=== PATIENT | female | born 1980 | race African-American/Black ===

== ENCOUNTER 2019-12-31 18:01 | Emergency (ER) | payer OTHER ==
[~2019-12-31] VITALS: Ht 162.6 cm; Wt 91.4 kg
[2019-12-31 18:02] VITALS: BP 130/79
[2019-12-31] MEDS ORDERED: BACT400T PO (18:28)
[2019-12-31] MEDS ORDERED: DOK1CAP7 PO (18:30)
[2019-12-31] MEDS ORDERED: BENZOCAINE 10% 9GM TUBE (ANBESOL) TOP STA (18:35)
[2019-12-31] MEDS ORDERED: MAGIC MOUTHWASH SUSPENSION BTL SS STA (18:35)
[2019-12-31] MEDS ORDERED: IBUPROFEN 600MG TAB PO ONE (18:45)
[2019-12-31] MEDS ORDERED: ACETAMINOPHEN 325 MG TAB PO ONE (18:45)
[2019-12-31] MEDS ORDERED: ANBE20GE TOP (18:47)
[2019-12-31] MEDS ORDERED: MAGICMW SSP (18:47)
[2019-12-31] MEDS ORDERED: ACET1TAB55 PO (18:47)
[2019-12-31] MEDS ORDERED: IBUP80TA PO (18:47)
== END 2019-12-31 19:12 | disposition home or self-care (01) ==
LOC: M ED 18:01
DX: K08.89 Other specified disorders of teeth and supporting structures (principal); K02.9 Dental caries, unspecified

== ENCOUNTER 2020-01-02 01:14 | Emergency (ER) | payer OTHER ==
[~2020-01-02] VITALS: Ht 162.6 cm; Wt 92.7 kg
[~2020-01-02 01:14] MED LIST: ACET1TAB55 PO; ANBE20GE TOP; BACT400T PO; DOK1CAP7 PO; IBUP80TA PO; MAGICMW SSP
[2020-01-02] MEDS ORDERED: IBUPROFEN 800 MG TAB PO ONE (03:00)
[2020-01-02] MEDS ORDERED: ACETAMINOPHEN 325 MG TAB PO ONE (03:00)
[2020-01-02 03:33] VITALS: BP 130/83
== END 2020-01-02 03:48 | disposition home or self-care (01) ==
LOC: M ED 01:14
DX: K02.9 Dental caries, unspecified (principal)

== ENCOUNTER 2020-02-21 13:05 | Emergency (ER) | payer OTHER ==
[2020-05-15 04:23] LABS: HCG, SERUM QUALITATIVE NEGATIVE (NEGATIVE)
== END 2020-02-21 16:42 | disposition home or self-care (01) ==
LOC: M ED 13:05
DX: M25.532 Pain in left wrist (principal); M25.542 Pain in joints of left hand; Y04.8XXA Assault by other bodily force, initial encounter; Y92.098 Other place in other non-institutional residence as the place of occurrence of the external cause

== ENCOUNTER 2020-04-08 22:35 | Emergency (ER) | payer OTHER ==
[~2020-04-08] VITALS: Ht 162.6 cm; Wt 87.5 kg
[2020-04-08 22:40] VITALS: BP 144/96
[2020-04-08] MEDS ORDERED: FLON1SPR NARES (22:49)
[2020-04-08] MEDS ORDERED: AZEL1SPR3 NARES (22:49)
[2020-04-08] MEDS ORDERED: CLAR10CA3 PO (22:49)
--- NOTE | 2020-04-09 01:25 | REPVR ---
PROCEDURE INFORMATION: Exam: XR Right Hand Exam date and time: 04/09/2020 1:11 AM Age: 39 years old Clinical indication: Pain; Hand; Bilateral; Additional info: [facility]uma first [facility] TECHNIQUE: Imaging protocol: XR Right hand. Views: 3 or more views. COMPARISON: CR Hand, complete LEFT 02/21/2020 2:38 PM FINDINGS: Bones/joints: Bony structures are aligned normally. Degree of osseous mineralization is age-appropriate. No acute fracture. No concerning osseous lesion. Joint spaces of the hand are well-maintained. Soft tissues: No focal soft tissue swelling. No evidence of soft tissue laceration or opaque foreign body. IMPRESSION: Normal radiographic series of the right hand. PROCEDURE INFORMATION: Exam: XR Left Hand Exam date and time: 04/09/2020 1:11 AM Age: 39 years old Clinical indication: Pain; Hand; Bilateral; Additional info: Trauma first [facility] TECHNIQUE: Imaging protocol: XR Left hand. Views: 3 or more views. COMPARISON: CR Hand, complete LEFT 02/21/2020 2:38 PM FINDINGS: Bones/joints: Bony structures are aligned normally. Degree of osseous mineralization is age-appropriate. No acute fracture. Small well-defined os effect fragment at the radial aspect of the distal thumb metacarpal similar to the prior exam, suggesting a prior injury No concerning osseous lesion. Joint spaces of the hand are well-maintained. Soft tissues: No focal soft tissue swelling. No evidence of soft tissue laceration or opaque foreign body. IMPRESSION: No acute fracture or osseous malalignment. Electronically signed by: Brijesh Hadley On 04/09/2020 01:25:08 AM
== END 2020-04-09 01:49 | disposition home or self-care (01) ==
LOC: M ED 22:35
DX: Z04.71 Encounter for examination and observation following alleged adult physical abuse (principal); S60.221A Contusion of right hand, initial encounter; S60.222A Contusion of left hand, initial encounter; X58.XXXA Exposure to other specified factors, initial encounter; Y92.89 Other specified places as the place of occurrence of the external cause; J30.2 Other seasonal allergic rhinitis

== ENCOUNTER 2020-10-15 17:58 | Emergency (ER) | payer OTHER ==
[~2020-10-15] VITALS: Ht 162.6 cm; Wt 103.1 kg
[~2020-10-15 17:58] MED LIST changes: +AZEL1SPR3 NARES; +CLAR10CA3 PO; +FLON1SPR NARES
[2020-10-15 20:13] LABS: HEMATOCRIT 36.8 % (36.0-47.0); HEMOGLOBIN 11.3 g/dl (12.0-15.5); MEAN CORPUSCULAR HEMOGLOBIN 26.4 pg (27.0-33.0); MEAN CORPUSCULAR HGB CONC 30.7 g/dl (32.0-36.5); PLATELET COUNT, AUTOMATED 342 10^3/uL (150-450); RED BLOOD COUNT 4.28 10^6/uL (4.00-5.40); WHITE BLOOD COUNT 11.3 10^3/uL (4.0-10.0)
[2020-10-15 20:50] LABS: HCG, SERUM QUALITATIVE NEGATIVE (NEGATIVE)
[2020-10-15] MEDS ORDERED: DOK1CAP7 (20:50)
[2020-10-15 20:56] LABS: ACETAMINOPHEN LEVEL < 2.0 UG/ML (10.0-30.0); ALBUMIN 3.9 GM/DL (3.2-5.2); ALT/SGPT 20 U/L (12-78); BILIRUBIN,DIRECT 0.1 MG/DL (0.0-0.2); BILIRUBIN,TOTAL 0.3 MG/DL (0.2-1.0); BLOOD UREA NITROGEN 11 MG/DL (7-18); CALCIUM LEVEL 9.2 MG/DL (8.5-10.1); CARBON DIOXIDE LEVEL 24 MEQ/L (21-32); CHLORIDE LEVEL 107 MEQ/L (98-107); CREATININE FOR GFR 0.92 MG/DL (0.55-1.30); ETHYL ALCOHOL (ETHANOL) < 0.003 % (0.000-0.010); GLOMERULAR FILTRATION RATE > 60.0 (>60); GLUCOSE, FASTING 90 MG/DL (70-100); POTASSIUM SERUM 3.9 MEQ/L (3.5-5.1); SALICYLATE LEVEL < 1.7 MG/DL (5.0-30.0); SODIUM LEVEL 140 MEQ/L (136-145); TOTAL PROTEIN 7.5 GM/DL (6.4-8.2)
[2020-10-15 21:45] LABS: AMPHETAMINES LEVEL URINE NEGATIVE (NEGATIVE); BARBITURATES URINE NEGATIVE (NEGATIVE); BENZODIAZEPINES URINE NEGATIVE (NEGATIVE); CANNABINOIDS URINE NEGATIVE (NEGATIVE); COCAINE METABOLITE URINE NEGATIVE (NEGATIVE); METHADONE URINE NEGATIVE (NEGATIVE); OPIATES URINE NEGATIVE (NEGATIVE); PHENCYCLIDINE URINE NEGATIVE (NEGATIVE)
--- NOTE | 2020-10-15 21:47 | REPVR ---
PROCEDURE INFORMATION: Exam: CT Head Without Contrast Exam date and time: 10/15/2020 9:16 PM Age: 39 years old Clinical indication: Altered mental status/memory loss TECHNIQUE: Imaging protocol: Computed tomography of the head without contrast. Axial and coronal reformatted images were created and reviewed. Radiation optimization: All CT scans at this facility use at least one of these dose optimization techniques: automated exposure control; mA and/or kV adjustment per patient size (includes targeted exams where dose is matched to clinical indication); or iterative reconstruction. COMPARISON: No relevant prior studies available. FINDINGS: Brain: No CT evidence of acute intracranial hemorrhage or acute territorial infarction. No significant mass effect or midline shift. Basal cisterns patent. Cerebral ventricles: Normal in size and configuration. Bones/joints: No acute osseous abnormality. Paranasal sinuses: Unremarkable. No fluid levels. Mastoid air cells: Grossly unremarkable. Soft tissues: Grossly unremarkable. IMPRESSION: No CT evidence of acute intracranial pathology. Electronically signed by: Caesar Berg On 10/15/2020 21:47:25 PM
[2020-10-15] MEDS ORDERED: LORazepam 1 MG TAB PO ONE (23:00)
[2020-10-16] MEDS ORDERED: diphenhydrAMINE 50MG CAP PO ONE ×2 (00:15→19:10)
[2020-10-16] MEDS ORDERED: diphenhydrAMINE 50MG CAP As Ordered ONE (00:17)
[2020-10-16 07:56] LABS: RSV AMPLIFICATION NEGATIVE (NEGATIVE)
--- NOTE | 2020-10-16 13:16 | ECGEPIP ---
[facility] - ED Test Date: 2020-10-15 Pat Name: CASEY MEZA Department: Room: - Gender: Female [employer]: [id number] : [id number] Requested By: DERIC Romano Order Number: [id number] Reading MD: Annalise Rodriguez Measurements Intervals [place] Rate: 93 P: 47 TX: 162 QRS: 37 QRSD: 82 T: 36 QT: 362 QTc: 450 Interpretive Statements Normal sinus rhythm No prior Electronically Signed on 10-16-2020 13:16:34 EDT by Annalise Rodriguez
[2020-10-16 21:14] VITALS: BP 134/83
== END 2020-10-16 21:18 ==
LOC: M ED 17:58
DX: F23 Brief psychotic disorder (principal); F41.9 Anxiety disorder, unspecified; F43.10 Post-traumatic stress disorder, unspecified; Z79.899 Other long term (current) drug therapy